=== PATIENT | female | born 1960 | race Caucasian/White ===

== ENCOUNTER 2025-05-15 14:01 | Outpatient (REF) | payer MEDICARE, MEDICAID, SELFPAY ==
[2025-05-15 16:29] LABS: Appearance Urine Clear; Glucose Urine UA Negative (Negative); PH 6.0 (5.0-9.0); Specific Gravity - Urine 1.010 (1.005-1.025); UMIC TRIGGER UA YES
[2025-05-15 16:44] LABS: Hematocrit 34.1 % (37.0-47.0); Hemoglobin 11.0 g/dl (12.0-16.0); Mean Corpuscular HGB Conc 32.3 g/dl (31.0-35.0); Mean Corpuscular Hemoglobin 31.7 pg (27.0-33.0); Mean Corpuscular Volume 98.3 fL (80.0-98.0); NRBC Abs Auto 0.000 X10*3/uL (0.0-0.012); NRBC Pct Auto 0.0 /100WBC (0.0-0.2); Platelet Count 248 X10*3/uL (160-400); Red Blood Count 3.47 X10*6/uL (4.20-5.50); White Blood Count 9.3 X10*3/uL (4.8-10.8)
[2025-05-15 16:58] LABS: Alanine Aminotransferase 10 U/L (0-31); Albumin Level 4.0 g/dL (3.5-5.0); Alkaline Phosphatase 54 U/L (39-117); Anion Gap 13 (12-20); Aspartate Amino Transferase 26 U/L (5-31); Blood Urea Nitrogen 39 mg/dL (9-16); Calcium 10.0 mg/dL (8.4-10.2); Carbon Dioxide 28 mmol/L (22-29); Chloride 105 mmol/L (96-108); Estimated Glomerular Filt Rate 34; Potassium 4.2 mmol/L (3.3-5.1); Sodium 142 mmol/L (135-145); Total Protein 7.0 g/dL (6.5-8.0)
[2025-05-16 21:29] LABS: Proteinase 3 PR3 Antibodies <1.0 AI
[2025-05-20 09:29] LABS: Neutrophil Cyto Ab Screen NEGATIVE (NEGATIVE)
== END 2025-05-15 14:02 | disposition home or self-care (01) ==
LOC: HO.HHCL 14:01
PROVIDERS: PCP Internal Medicine; Visit Provider Internal Medicine Hypertension Specialist
DX: N18.30 Chronic kidney disease, stage 3 unspecified (principal)
CPT/HCPCS: 36415; 80053; 81001; 85027; 86021; 86036; 86160; 99202

== ENCOUNTER 2025-05-15 14:01 | Outpatient (AMB) | payer MEDICARE, MEDICAID, SELFPAY ==
[2025-05-15 14:07] VITALS: BP 146/74; PULSE 69; O2SAT 100; BMI 20.3
--- NOTE | 2025-05-15 14:07 | HO.NEPHOV_ITS ---
Vital Signs 05/15/25 14:07 05/15/25 14:23 Height 5 ft 4 in Weight 118 lb BMI 20.3 BP 146/74 H 130/70 Blood Pressure Location Lt brachial Lt brachial Position Sitting Sitting Pulse 69 Pulse Source Pulse Oximeter Pulse Oximetry (%) 100 Oxygen Delivery Method Room Air Intake Visit Reasons: CKD/ Unable to reach Electric Range Assembler Required: No Accompanied by: Caregiver Allergies No Known Allergies Allergy (Mild, Verified 05/15/25 14:10) NONE Medication List - Last Reconciled 05/15/25 by Judah Alcala MD amlodipine 2.5 mg PO DAILY calcitriol 0.25 mcg PO DAILY docusate sodium 100 mg PO DAILY famotidine 20 mg PO DAILY gredaybpzfm-szbmccxvn-ixudjghh 100-62.5-25 mcg (Trelegy Ellipta) 1 ea inhalation DAILY folic acid 1 mg PO DAILY ipratropium-albuterol 20-100 mcg/actuation (Combivent Respimat) 1 puff inhalation QID loperamide (Anti-Diarrheal (loperamide)) 2 mg PO PRN montelukast 10 mg PO DAILY olanzapine 7.5 mg PO BEDTIME HPI Comments Details: The patient is a 64-year-old female presenting with chronic kidney disease and unexplained bruising. The patient has a history of chronic kidney disease, previously managed by Dr. East. Due to scheduling conflicts and weather conditions, follow-up appointments were missed, leading to a delay in ongoing management. The patient also has a history of hypertension, for which she is currently taking medication. Her blood pressure was noted to be elevated during the visit, attributed to stress and logistical issues encountered prior to the appointment. The patient has a past history of diabetes mellitus, which resolved following weight loss and dietary modifications. She no longer requires medication for diabetes and maintains her condition through diet control. The patient reports episodes of bruising that appear and resolve spontaneously. The etiology of the bruising is unclear, and further investigation is warranted. [facility] Medical History (Updated 05/15/25 @ 14:12 by Judah Alcala MD) Bipolar disorder Moderate intellectual disabilities Obesity Essential hypertension, benign Disorder of eye movements GERD (gastroesophageal reflux disease) Diabetes type 2, controlled CKD (chronic kidney disease), stage III Mixed hyperlipidemia Review of Systems Const Denies anorexia, Denies fever(s) and Denies weakness Eyes Denies blurry vision Card Denies no additional complaints and Denies dyspnea Resp Reports no additional complaints, Reports cough and Denies dyspnea GI Denies melena and Denies diarrhea Denies hematuria Musc Denies tingling Skin/Breast Denies rash Neuro Denies focal weakness, Denies tingling, Denies tremor(s) and Denies weakness Physical Exam Vital Signs: BMI result Body Mass Index 20.3 Comfortable Neck supple no JVD. Lungs entry equal no rales. Heart S1-S2 heard no gallop or rub. Abdomen soft nontender. Neuro alert awake oriented. No asterixis. Extremities no edema. Results Reviewed Results Reviewed: 03/13/25 Bun 31 Cr 1.37 eGFR 43 ca 9.2 HgB 10.6 UMACR 23 HgA1C : 4/9 % Assessment & Plan Assessment & Plan (1) CKD (chronic kidney disease), stage III: Code(s): N18.30 - Chronic kidney disease, stage 3 unspecified Category: Medical Plan CKD 3 Etiology to be determined No proteinuria Work up ordered including serologies and ultrasound Needs stay on low salt diet Avoid nephrotoxins Optimize BP Further work up will be based on the outcome of baseline work up Orders: Orders Complete Blood Count no Diff Today N18.30 - Chronic kidney disease, stage 3 unspecified UA and rflx microscopic Today N18.30 - Chronic kidney disease, stage 3 unspecified Myeloperoxidase Antibody Today N18.30 - Chronic kidney disease, stage 3 unspecified Proteinase 3 PR3 Antibodies Today N18.30 - Chronic kidney disease, stage 3 unspecified Complement C4 Today N18.30 - Chronic kidney disease, stage 3 unspecified Comprehensive Met. Panel Today N18.30 - Chronic kidney disease, stage 3 unspecified US renal BI Today N18.30 - Chronic kidney disease, stage 3 unspecified Neutrophil Cytoplasma Ab Today N18.30 - Chronic kidney disease, stage 3 unspecified Complement C3 Today N18.30 - Chronic kidney disease, stage 3 unspecified Coding Level of Care Code New Pt Level 4 (03639) Diagnoses CKD (chronic kidney disease), stage III N18.30
[2025-05-15 14:23] VITALS: BP 130/70
--- OUTSIDE RECORDS SUMMARY | 2025-05-15 14:36 | XMS_ITS | Encounter Summary ---
Author Organization [facility] Address [address] [place] [address] Care Team Providers Care Printing And Stamping Supervisor Name Role Phone Orlando Whitlock MD Primary Care Provider [phone] Reason for Visit * Reason Onset Date Comments Appointment 05/03/2025 Encounter Details Date Type Department Care Team (Late st Contact Info) Description 05/03/2025 Telephone Nephrology - [place] [address] [place] [address] Steve East MD 100 [facility] [address] [place] [address] Appointment Social History Tobacco Use Types Packs/Day Years Used Date Smoking Tobacco: Former Smokeless Tobacco: Never Alcohol Use Standard Drinks/Week Comments No 0 (1 standard drink = 0.6 oz pur e alcohol) Comments No Sex and Gender Information Value Date Recorded Sex Assigned at Not on file Legal Sex Female 8:46 PM EST Gender Identity Not on file Sexual Orientation Not on file documented as of this encounter Progress Notes * Denia Vee RN - 05/15/2025 10:02 AM EDT Spoke to Denisevinnie, she and her mother Dixie, care for Tila, She states that Tila has an appt today in the renal office. She asked me to contact Dixie, to go over the appt Dixie is taking her to the appt. In Renal office, * Denia Vee RN - 05/15/2025 10:01 AM EDT Call to pt * Yoselin Diaz RN - 05/08/2025 8:40 AM EDT SUZI 03/19/25 with care team for contact dermatitis. There is no mention of bruising in the note. Call to career services manager. LM for her to call the office * Orlando Whitlock MD - 05/07/2025 6:38 PM EDT So I have not seen this patient since 08/2024 I surely would not tell this patient or anyone else to see nephrology for bruising, perhaps she has a new PCP or more likely he caregiver is mistaken. but I want It to be clear that I did no advise this, in fact have not talked with this patient in over6 months All that being said please inform her career services manager a cbc has been ordered to assess her platelets * Lili Alejandre - 05/03/2025 10:09 AM EDT Dixie calling back for urgent visit with Dr. East. Explained that provider is not here and two messages have been sent so far this morning. Advised when provider is not in this office, we do not know what site he is in - she is going to try reaching the private office. * Rudy Perez - 05/03/2025 9:53 AM EDT Pt caregiver calling back, advised once again of previous message. * Wilmer Isbell - 05/03/2025 9:29 AM EDT Patient's caregiver is calling to schedule a sick visit States patient is bruising and was advised by PCP to contact NEPHR for sooner appointment than Dec. Please contact Dixie to schedule documented in this encounter Plan of Treatment Upcoming Encounters Date Type Department Care Team (Late st Contact Info) Description 06/17/2025 1:30 PM EDT Consult Orthopedic Surgery - [place] [id number] [address] Mitchel Harrison, FABIAN [address] [address] 07/24/2025 2:45 PM EDT Office Visit Adult Medicine [facility] [address] [place] [address] Judit Agarwal PA [address] [place] [address] 09/10/2025 4:00 PM EST Office Visit Nephrology - [address] [address] [facility] East MD 100 [facility] [address] [place] [phone] Scheduled Orders Name Type Priority Associated Diagnoses Orde r Schedule CBC and differential Lab Routine Bruise 1 Occurrences starting 05/07/2025 until 05/07/2026 documented as of this encounter Visit Diagnoses Diagnosis Bruise- Primary Contusion of unspecified site documented in this encounter Additional Health Concerns Assessment Noted Time A fall risk assessment has been complete d for the patient 01/16/2025 9:31 AM EDT documented as of this encounter Care Teams Printing And Stamping Supervisor Relationship Specialty Start Date End Date Orlando Whitlock MD [address] [place] [address] PCP - General Internal Medicine 11/15/14 documented as of this encounter
== END 2025-05-15 14:29 | disposition home or self-care (01) ==
LOC: HO.HKAM 14:01
PROVIDERS: PCP Internal Medicine; Visit Provider Internal Medicine Hypertension Specialist
DX: N18.30 Chronic kidney disease, stage 3 unspecified (principal)
CPT/HCPCS: 99204

== ENCOUNTER 2025-06-03 09:19 | Outpatient (REF) | payer MEDICARE, MEDICAID, SELFPAY ==
--- NOTE | ~2025-06-03 | US_ITS ---
CLINICAL HISTORY: N18.30 - Chronic kidney disease, stage 3 unspecified US Renal Comparison: None provided Findings: Right kidney normal size and echotexture, 7.3 cm length. Superior pole cyst measuring 7 mm. Left kidney normal size and echotexture, 8.8 cm length. Lower pole cyst measuring 5 mm. Interpolar cyst measuring 6 mm. No collecting system dilatation of either kidney. Normal color Doppler. IMPRESSION: 1. Normal kidneys. This document has been electronically signed by: Dixie Murdock MD on 06/03/2025 14:49:52
--- OUTSIDE RECORDS SUMMARY | 2025-06-03 10:02 | XMS_ITS | Encounter Summary ---
Author Organization [facility] Address [address] [place] [address] Care Team Providers Care Sumatra Opener Name Role Phone Orlando Whitlock MD Primary Care Provider [phone] Reason for Referral * Consultation (Urgent) - Authorized Specialty Diagnoses / Procedures Referred By Contac t Referred To Contact Podiatry / Orthopaedic Surgery Diagnoses Type 2 diabetes mellitus without complications ([facility] V24, [facility] V28) Orlando Whitlock MD [address] [place] [address] Phone: tel: fax: Mitchel Harrison, DPAlfred [address] [place] [address] Phone: tel: fax: Referral ID Status Reason Start Date Expiration Date Visits Requested Visits Authorized [id number] Authorized Specialty Services Required 05/09/2025 05/09/2026 1 1 Reason for Visit * Reason Onset Date Comments Referral 05/08/2025 Podiatry Encounter Details Date Type Department Care Team ([facility] st Contact Info) Description 05/08/2025 Telephone Adult Medicine [address] [address] Orlando Whitlock MD [address] [place] [address] Referral (Podiatry) Social History Tobacco Use Types Packs/Day Years [...] as of this encounter Progress Notes * [place] - 05/08/2025 2:47 PM EDT What insurance does the patient have today? Payor: @[email or web address]@ Medicare and Medicaid Referrals cannot be processed if the insurance is not accurate. If the insurance listed above is NO BILLING INFORMATION FOUND FOR THIS ENCOUNTER then the patients correct insurance must be obtainedand registered in [facility] or their referral can not be processed. Name of person calling to request this referral? Dixie patient's caregiver Referred To Provider (Include first and last name): Aman JIMENEZ NPI (if known): n/a Order/Specialty requested Orthopedic Surgery/Podiatry Chief Complaint (Note: This is not a body part or a procedure): E11.9 Has the patient seen provider for this problem/Dx before? no Referred To Provider Address: [address] [place] [address] Referred To Provider Referred To Provider Does patient have an appointment scheduled?: yes If yes, what is the date of the appointment?: 06/17/25 Is this a retro request? no Number of visits requested: n/a Is this appointment related to: MVA or worker compensation? no patient's caregiver is asking for a new referral order to be placed that has an Emergent/Urgent priority status based on the significance of the foot/nail, with patient's other health concerns. An appointment was made, but the office suggested she call the Referral Relations Dept to get a new referral, to be seen eariler documented in this encounter Plan of Treatment Upcoming Encounters Date Type Department Care Team (Late st Contact Info) Description 06/17/2025 1:30 PM EDT Consult Orthopedic Surgery - [place] [address] [facility] [address] [place] [phone] Mitchel Harrison, DPAlfred 175 [facility] [address] [place] [address] 07/24/2025 2:45 PM EDT Office Visit Adult Medicine [facility] [address] [place] [address] Judit Agarwal PA [address] [place] [address] 09/10/2025 4:00 PM EST Office Visit Nephrology - [address] [phone] Steve East MD [address] [facility] [address] [place] [address] Scheduled Referrals Name Type Priority Associated Diagnoses Orde r Schedule Ambulatory referral to Podiatry Outpatient Referral Routine Type 2 diabetes mellitus without complications ([facility] V24, [facility] V28) Expected: 05/09/2025, Expires: 05/08/2026 documented as of this encounter Visit Diagnoses Diagnosis Type 2 diabetes mellitus without complications ([facility] V24, [facility] V28)- Primary documented in this encounter Additional Health Concerns Assessment Noted Time A fall risk assessment has been complete d for the patient 01/16/2025 9:31 AM EDT documented as of this encounter Care Teams Sumatra Opener Relationship Specialty Start Date End Date Orlando Whitlock MD [address] [place] [address] PCP - General Internal Medicine 11/15/14 documented as of this encounter
--- OUTSIDE RECORDS SUMMARY | 2025-06-03 10:02 | XMS_ITS ---
Author Name [facility] Organization Unknown Care Team Organization Name Specialty Phone Email Start Date End Da [facility] 05/29/2025
== END 2025-06-03 09:20 | disposition home or self-care (01) ==
LOC: HO.HMGCX 09:19
PROVIDERS: PCP Internal Medicine; Visit Provider Internal Medicine Hypertension Specialist
DX: N18.30 Chronic kidney disease, stage 3 unspecified (principal)
CPT/HCPCS: 76775

== ENCOUNTER → 2025-06-03 09:22 | Outpatient (BNV) | payer MEDICARE, MEDICAID, SELFPAY | PROVIDERS: PCP Internal Medicine; Visit Provider Radiology Diagnostic Radiology | DX: N18.30 Chronic kidney disease, stage 3 unspecified (principal) | CPT/HCPCS: 76775 ==

== ENCOUNTER 2025-06-26 14:05 | Outpatient (AMB) | payer MEDICARE, MEDICAID, SELFPAY ==
[2025-06-26 14:29] VITALS: BP 150/82; PULSE 78; O2SAT 99
--- NOTE | 2025-06-26 14:29 | HO.NEPHOV_ITS ---
Vital Signs 06/26/25 14:29 06/26/25 14:39 Height 5 ft 4 in BP 150/82 H 140/80 H Blood Pressure Location Lt brachial Lt brachial Position Sitting Sitting Pulse 78 Pulse Source Pulse Oximeter Pulse Oximetry (%) 99 Oxygen Delivery Method Room Air Intake Visit Reasons: 6wk f/u w/labs-Conf Tubing Mill Setter Required: No Accompanied by: Caregiver Allergies No Known Allergies Allergy (Mild, Verified 06/26/25 14:31) NONE Medication List - Last Reconciled 06/26/25 by Judah Alcala MD amlodipine 2.5 mg PO DAILY calcitriol 0.25 mcg PO DAILY docusate sodium 100 mg PO DAILY famotidine 20 mg PO DAILY qspjwlosxfw-xtpvujsgj-vmmqkqls 100-62.5-25 mcg (Trelegy Ellipta) 1 ea inhalation DAILY folic acid 1 mg PO DAILY ipratropium-albuterol 20-100 mcg/actuation (Combivent Respimat) 1 puff inhalation QID loperamide (Anti-Diarrheal (loperamide)) 2 mg PO PRN montelukast 10 mg PO DAILY olanzapine 7.5 mg PO BEDTIME HPI Comments Details: The patient is a 64-year-old female presenting with chronic kidney disease and unexplained bruising. The patient has a history of chronic kidney disease, previously managed by Dr. East. Due to scheduling conflicts and weather conditions, follow-up appointments were missed, leading to a delay in ongoing management. The patient also has a history of hypertension, for which she is currently taking medication. Her blood pressure was noted to be elevated during the visit, attributed to stress and logistical issues encountered prior to the appointment. The patient has a past history of diabetes mellitus, which resolved following weight loss and dietary modifications. She no longer requires medication for diabetes and maintains her condition through diet control. The patient reports episodes of bruising that appear and resolve spontaneously. The etiology of the bruising is unclear, and further investigation is warranted. 06/26/25 No new issues today. Accompanied by caregiver. [facility] Medical History (Updated 05/15/25 @ 14:12 by Judah Alcala MD) Bipolar disorder Moderate intellectual disabilities Obesity Essential hypertension, benign Disorder of eye movements GERD (gastroesophageal reflux disease) Diabetes type 2, controlled CKD (chronic kidney disease), stage III Mixed hyperlipidemia Physical Exam Vital Signs: Last Vital Signs Pulse 78 06/26/25 14:29 BP 140/80 H 06/26/25 14:39 Pulse Ox 99 06/26/25 14:29 Oxygen Delivery Method Room Air 06/26/25 14:29 Comfortable Neck supple no JVD. Lungs entry equal no rales. Heart S1-S2 heard no gallop or rub. Abdomen soft nontender. Neuro alert awake oriented. No asterixis. Extremities no edema. Results Reviewed Nephrology Results: Hgb, (12.0-16.0) 11.0 g/dl L 05/15/25 WBC, (4.8-10.8) 9.3 X10*3/uL 05/15/25 Plt Count, (160-400) 248 X10*3/uL 05/15/25 Sodium, (135-145) 142 mmol/L 05/15/25 Potassium, (3.3-5.1) 4.2 mmol/L 05/15/25 Chloride, (96-108) 105 mmol/L 05/15/25 Carbon Dioxide, (22-29) 28 mmol/L 05/15/25 BUN, (9-16) 39 mg/dL H 05/15/25 Creatinine, (0.5-1.4) 1.54 mg/dL H 05/15/25 Calcium, (8.4-10.2) 10.0 mg/dL 05/15/25 Urine Protein, (Neg-Trace) Negative mg/dL 05/15/25 Renal US 06/03/25 Assessment & Plan Assessment & Plan (1) CKD (chronic kidney disease), stage III: Code(s): N18.30 - Chronic kidney disease, stage 3 unspecified Category: Medical Plan CKD 3 No proteinuria Serologies are essentially negative. Ultrasonogram revealed small kidney. 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 At present renal function is at baseline. Goal is to slow the progression of renal disease Needs stay on low salt diet Avoid nephrotoxins Optimize BP and avoid hypotension Orders: Orders Basic Metabolic Panel 4 Months N18.30 - Chronic kidney disease, stage 3 unspecified Complete Blood Count no Diff 4 Months N18.30 - Chronic kidney disease, stage 3 unspecified Parathyroid Hormone Intact 4 Months N18.30 - Chronic kidney disease, stage 3 unspecified Coding Level of Care Code Est Pt Level 4 (52381) Diagnoses CKD (chronic kidney disease), stage III N18.30
[2025-06-26 14:39] VITALS: BP 140/80
== END 2025-06-26 14:43 | disposition home or self-care (01) ==
LOC: HO.HKAM 14:05
PROVIDERS: PCP Internal Medicine; Visit Provider Internal Medicine Hypertension Specialist
DX: N18.30 Chronic kidney disease, stage 3 unspecified (principal)
CPT/HCPCS: 99214

== ENCOUNTER → 2025-06-26 14:05 | Outpatient (BNVA) | payer MEDICARE, MEDICAID, SELFPAY | PROVIDERS: PCP Internal Medicine; Visit Provider Internal Medicine Hypertension Specialist | DX: E11.22 Type 2 diabetes mellitus with diabetic chronic kidney disease (principal); I12.9 Hypertensive chronic kidney disease with stage 1 through stage 4 chronic kidney disease, or unspecified chronic kidney disease; N18.30 Chronic kidney disease, stage 3 unspecified | CPT/HCPCS: 99212 ==